=== PATIENT | female | born 1955 | race Caucasian/White ===

== ENCOUNTER 2018-12-22 06:57 | Day surgery (SDC) | payer OTHER ==
[2018-12-22 07:39] VITALS: BMI 27.3
[2018-12-22 08:45] VITALS: TEMP 97.4
[2018-12-22 09:33] VITALS: BP 114/66; PULSE 76
--- NOTE | 2018-12-27 19:59 | PATH ---
Surgical Pathology Report Patient Name: [facility]. Rec. #: [id number] /Age/Gender: 1955 (Age: 63) / F Account: [id number] Location: U-ENDOSCOPY Taken: 12/22/2018 Received: 12/25/2018 Reported: 12/27/2018 Physicians: Jimbo Baptiste M.D. Specimen(s) Received A: DUODENUM, SECOND PORTION AND BULB B: ANTRUM C: GE JUNCTION D: CECAL POLYP Clinical History Nausea, early satiety, family history of colon cancer and adenomatous polyps Postoperative diagnosis: Hiatal hernia, GERD, gastritis, diverticulosis, colon polyp, hemorrhoids Final Diagnosis A. DUODENUM, SECOND PORTION AND BULB, BIOPSY: DUODENAL MUCOSA WITH MILD TO MODERATE CHRONIC DUODENITIS. B. STOMACH, ANTRUM, BIOPSY: GASTRIC ANTRAL MUCOSA WITH MODERATE CHRONIC GASTRITIS. IMMUNOHISTOCHEMICAL STAIN FOR H. PYLORI IS NEGATIVE. C. GE JUNCTION, BIOPSY: SQUAMOUS MUCOSA WITH VASCULAR CONGESTION AND CHANGES OF MILD REFLUX TYPE ESOPHAGITIS. NO COLUMNAR MUCOSA, INTESTINAL METAPLASIA, OR DYSPLASIA IDENTIFIED. D. CECAL POLYP, BIOPSY: POLYPOID COLONIC MUCOSA WITH PROMINENT LYMPHOID AGGREGATE. Electronically Signed Sparkle Sloan M.D. Gross Description A. Received in formalin, labeled "second portion and bulb of duodenum" are 3 angelo, irregular portions of soft tissue averaging 0.4 cm. in greatest dimension. The specimens are submitted in toto in one cassette. B. Received in formalin, labeled "antrum biopsy" are 4 angelo, irregular portions of soft tissue ranging from 0.2-0.6 cm. in greatest dimension. The specimens are submitted in toto in one cassette. C. Received in formalin, labeled "GE junction biopsy" are 3 angelo, irregular portions of soft tissue ranging from 0.4-0.5 cm. in greatest dimension. The specimens are submitted in toto in one cassette. D. Received in formalin, labeled "cecal polyp biopsy" is a angelo, irregular portion of soft tissue measuring 0.2 cm. in greatest dimension. The specimen is submitted in toto in one cassette. 12/25/2018 saudi12/25/2018
== END 2018-12-22 09:33 | disposition home or self-care (01) ==
LOC: JASU-ENDO 06:57
PROVIDERS: ATTEND Internal Medicine Gastroenterology
PROC: 0DB68ZX Excision of Stomach, Via Natural or Artificial Opening Endoscopic, Diagnostic (ICD-10-PCS; 2018-12-22)
PROC: 0DB58ZX Excision of Esophagus, Via Natural or Artificial Opening Endoscopic, Diagnostic (ICD-10-PCS; 2018-12-22)
PROC: 0DB98ZX Excision of Duodenum, Via Natural or Artificial Opening Endoscopic, Diagnostic (ICD-10-PCS; principal; 2018-12-22 08:00)
DX: K29.80 Duodenitis without bleeding (principal); K29.50 Unspecified chronic gastritis without bleeding; K21.0 Gastro-esophageal reflux disease with esophagitis; K44.9 Diaphragmatic hernia without obstruction or gangrene; K21.9 Gastro-esophageal reflux disease without esophagitis
CPT/HCPCS: 88305-TC; 88342-TC

== ENCOUNTER 2023-08-01 04:44 | Day surgery (SDC) | payer OTHER, BC ==
[2023-07-29 11:29] VITALS: BMI 28.3
[2023-08-01 09:50] VITALS: TEMP 98.7
[2023-08-01 10:18] VITALS: BP 118/58; PULSE 72; RESP 16
== END 2023-08-01 10:27 | disposition home or self-care (01) ==
LOC: JASU-ENDO 04:44
PROVIDERS: ATTEND Internal Medicine Gastroenterology
PROC: 0DBL8ZX Excision of Transverse Colon, Via Natural or Artificial Opening Endoscopic, Diagnostic (ICD-10-PCS; principal; 2023-08-01 09:00)
DX: Z12.11 Encounter for screening for malignant neoplasm of colon (principal); K63.5 Polyp of colon; K57.30 Diverticulosis of large intestine without perforation or abscess without bleeding; K64.8 Other hemorrhoids; Z86.010 Personal history of colon polyps; Z80.0 Family history of malignant neoplasm of digestive organs; Z83.719 Family history of colon polyps, unspecified
CPT/HCPCS: 88305-TC